=== PATIENT | female | born 1990 | race Caucasian/White ===

== ENCOUNTER 2017-10-04 09:27 | Emergency (ER) | payer MEDICAID, OTHER ==
[~2017-10-04] VITALS: Ht 165.1 cm; Wt 76.0 kg
[2017-10-04] MEDS ORDERED: PENI250T2 PO (10:03)
[2017-10-04 10:13] VITALS: BP 129/89
== END 2017-10-04 10:20 | disposition home or self-care (01) ==
LOC: ER 09:28
DX: K08.89 Other specified disorders of teeth and supporting structures (principal); Z79.899 Other long term (current) drug therapy; Z91.040 Latex allergy status
CPT/HCPCS: 99283